=== PATIENT | male | born 1935 | race Caucasian/White ===

== ENCOUNTER 2017-12-16 15:07 | Day surgery (SDC) | payer MEDICARE, BC ==
[2017-12-11 13:14] LABS: HEMATOCRIT 33.4 % (42.0-52.0); HEMOGLOBIN 11.4 g/dl (14.0-17.9); MEAN CORPUSCULAR HEMOGLOBIN 32.5 PG (27.0-31.0); MEAN CORPUSCULAR HGB CONC 34.2 % (33.0-36.5); MEAN CORPUSCULAR VOLUME 95.1 FL (78-98); MEAN PLATELET VOLUME 7.3 FL (7.4-10.4); PLATELET COUNT 401 X10'3 (140-440); RED BLOOD COUNT 3.51 X10'6 (4.70-6.10); RED CELL DISTRIBUTION WIDTH 13.1 % (11.5-14.5)
[2017-12-11 13:15] LABS: BASOPHILS % (AUTO) 0.6 % (0-1); EOSINOPHILS # (AUTO) 0.1 X10'3 (0-0.9); LYMPHOCYTES % (AUTO) 14.4 % (21-51); MONOCYTES # (AUTO) 0.5 X10'3 (0-0.9); MONOCYTES % (AUTO) 6.7 % (2-12); NEUTROPHILS # (AUTO) 5.4 X10'3 (1.8-7.7); NEUTROPHILS % (AUTO) 76.3 % (42-75)
[2017-12-11 13:19] LABS: INR 1.1 INR; PARTIAL THROMBOPLASTIN TIME 33 SECONDS (22-32); PROTHROMBIN TIME 11.3 SECONDS (9.0-12.0)
[2017-12-11 13:20] LABS: ANION GAP 7 (8-16); BLOOD UREA NITROGEN 31 MG/DL (7-18); BUN/CREATININE RATIO 25.2 (5.4-32.0); CHLORIDE 105 MMOL/L (99-107); CREATININE 1.23 MG/DL (0.60-1.10); GLUCOSE 118 MG/DL (70-104); SODIUM 143 MMOL/L (135-145); TOTAL CARBON DIOXIDE 30.7 MMOL/L (24-32); eGFR 57 ML/MIN
[2017-12-16] VITALS (7 sets, daily range): BP systolic 109–158; BP diastolic 61–91
[~2017-12-16] VITALS: Ht 182.9 cm; Wt 70.4 kg
[~2017-12-16 15:07] MED LIST: ASPI-529 PO; FLEC50TA10 PO; GLUC1CAP32 PO; MULT-785 PO
[2017-12-16] MEDS ORDERED: LIDOcaine 1% w/EPI 1:200,000 10 ML, BUPIVAcaine 2.5mg/ml /PF 25 MG SQ ONE ×2 (15:30)
[2017-12-16] MEDS ORDERED: normal saline 1000ml 1,000 ML IV SCH (15:30)
[2017-12-16] MEDS ORDERED: diphenhydrAMINE 25mg capsule PO PRN (15:30)
[2017-12-16] MEDS ORDERED: LORazepam 0.5 MG tablet PO PRN (15:30)
[2017-12-16] MEDS ORDERED: GLUC-221 PO (15:46)
[2017-12-16] MEDS ORDERED: ACET-1025 (15:46)
[2017-12-16] MEDS ORDERED: NAPR220T67 PO (15:46)
[2017-12-16] MEDS ORDERED: POLY17PO10 PO (15:46)
[2017-12-16] MEDS ORDERED: CARB1TAB44 PO (15:46)
[2017-12-16] MEDS ORDERED: LIDOcaine/PRILOcaine 5gm cream TP ONE (17:05)
[2017-12-16] MEDS ORDERED: iohexol 350MG/ML 100ml bottle IV ONE (17:17)
[2017-12-16] MEDS ORDERED: LIDOcaine 1% 30ml preserv. free vial ONE (17:17)
[2017-12-16] MEDS ORDERED: heparin 1,000unit/ml 10ml vial 10 ML ONE (18:11)
[2017-12-16] MEDS ORDERED: nitroGLYCERIN-Tridil 50MG/D5W 250 ML IV ONE (18:11)
[2017-12-16] MEDS ORDERED: midazolam 2 mg/2 ml injection ONE (18:11)
[2017-12-16] MEDS ORDERED: verapamil 2.5 mg/ml inj IV ONE (18:11)
== END 2017-12-16 20:25 | disposition home or self-care (01) ==
LOC: SSTAY O 15:07
PROVIDERS: ATTEND Internal Medicine Interventional Cardiology
DX: I25.10 Atherosclerotic heart disease of native coronary artery without angina pectoris (principal); G20 Parkinson's disease; I10 Essential (primary) hypertension; I65.23 Occlusion and stenosis of bilateral carotid arteries; I48.0 Paroxysmal atrial fibrillation; I45.19 Other right bundle-branch block; I95.89 Other hypotension; M19.90 Unspecified osteoarthritis, unspecified site; Z86.79 Personal history of other diseases of the circulatory system; Z79.82 Long term (current) use of aspirin; Z79.891 Long term (current) use of opiate analgesic; Z91.048 Other nonmedicinal substance allergy status; Z86.69 Personal history of other diseases of the nervous system and sense organs; Z87.891 Personal history of nicotine dependence; Z98.41 Cataract extraction status, right eye; Z98.42 Cataract extraction status, left eye; Z72.89 Other problems related to lifestyle; Z79.899 Other long term (current) drug therapy; Z98.890 Other specified postprocedural states
CPT/HCPCS: 36415; 80048; 85025; 85610; 85730; 93005; 93458; 99152; 99153; A6258; C1769; J1644; J2250; J3490; J7030; Q9967; A4620

== ENCOUNTER 2018-03-26 12:47 | Outpatient (CLI) | payer MEDICARE, BC ==
[~2018-03-26 12:47] MED LIST changes: +ACET-1025; +CARB1TAB44 PO; +GLUC-221 PO; +NAPR220T67 PO; +POLY17PO10 PO
== END 2018-03-26 23:59 | disposition home or self-care (01) ==
LOC: RAD 12:47
PROVIDERS: ATTEND Family Medicine
DX: R13.12 Dysphagia, oropharyngeal phase (principal); R47.1 Dysarthria and anarthria; R49.0 Dysphonia; K22.4 Dyskinesia of esophagus; G20 Parkinson's disease; Z79.899 Other long term (current) drug therapy; Z87.891 Personal history of nicotine dependence; Z91.018 Allergy to other foods
CPT/HCPCS: 74230

== ENCOUNTER 2021-04-26 12:52 | Outpatient (CLI) | payer MEDICARE, BC | END 2021-04-26 23:59 | disposition home or self-care (01) | LOC: RAD 12:52 | PROVIDERS: ATTEND Family Medicine | DX: R13.12 Dysphagia, oropharyngeal phase (principal); R47.1 Dysarthria and anarthria; R49.0 Dysphonia; G20 Parkinson's disease | CPT/HCPCS: 74230 ==